=== PATIENT | male | born 1935 | race Caucasian/White ===

== ENCOUNTER → 2021-05-09 10:00 | Outpatient (BNVA) | payer SELFPAY | PROVIDERS: PCP Internal Medicine; Visit Provider Nurse Practitioner Family ==

== ENCOUNTER → 2021-08-06 09:52 | Outpatient (BNVA) | payer OTHER, SELFPAY | PROVIDERS: PCP Internal Medicine; Visit Provider Nurse Practitioner Family | DX: I10 Essential (primary) hypertension (principal); G50.0 Trigeminal neuralgia; E11.9 Type 2 diabetes mellitus without complications ==

== ENCOUNTER 2022-01-12 10:36 | Outpatient (REF) | payer OTHER, SELFPAY ==
[2022-01-12 11:04] LABS: Hemoglobin 10.8 g/dl (14.0-18.0); Mean Corpuscular HGB Conc 32.7 g/dl (31.0-36.0); Mean Corpuscular Hemoglobin 30.8 pg (27.0-33.0); Mean Platelet Volume 9.8 fL (9.4-12.4); Platelet Count 193 X10*3/uL (160-400); Red Blood Count 3.51 X10*6/uL (4.60-5.80); Red Cell Distribution Width 13.2 % (11.0-16.0); White Blood Count 5.2 X10*3/uL (4.8-10.8)
[2022-01-12 11:30] LABS: Anion Gap 14 (12-20); Blood Urea Nitrogen 16 mg/dL (9-16); Calcium 9.4 mg/dL (8.4-10.2); Carbon Dioxide 26 mmol/L (22-29); Chloride 102 mmol/L (96-108); Estimated Glomerular Filt Rate 59; Glucose Random 136 mg/dL (60-115); Potassium 5.1 mmol/L (3.3-5.1); Sodium 137 mmol/L (135-145)
== END 2022-01-12 10:37 | disposition home or self-care (01) ==
LOC: HO.LAB 10:36
PROVIDERS: PCP Internal Medicine; Visit Provider Nurse Practitioner Family
DX: I10 Essential (primary) hypertension (principal); G50.0 Trigeminal neuralgia; E11.9 Type 2 diabetes mellitus without complications
CPT/HCPCS: 36415; 80048; 85027

== ENCOUNTER → 2022-06-03 09:48 | Outpatient (BNVA) | payer OTHER, SELFPAY | PROVIDERS: PCP Internal Medicine; Visit Provider Nurse Practitioner Family | DX: D64.9 Anemia, unspecified (principal); E87.1 Hypo-osmolality and hyponatremia ==

== ENCOUNTER → 2022-10-03 09:26 | Outpatient (BNVA) | payer OTHER, SELFPAY | PROVIDERS: PCP Internal Medicine; Visit Provider Nurse Practitioner Family | DX: D64.9 Anemia, unspecified (principal); E87.1 Hypo-osmolality and hyponatremia ==

== ENCOUNTER 2022-10-03 09:27 | Outpatient (AMB) | payer OTHER, SELFPAY ==
[2022-10-03 09:28] VITALS: BP 138/60; PULSE 67; O2SAT 97; BMI 27.5
--- NOTE | 2022-10-03 09:28 | MHC.OFFVIS ---
Intake Vital Signs 10/03/22 09:28 Height 5 ft 7 in Weight 175 lb 6 oz BMI 27.5 BP 138/60 Blood Pressure Location Rt brachial Position Sitting Pulse 67 Pulse Source Pulse Oximeter Pulse Oximetry (%) 97 Oxygen Delivery Method Room Air Intake Visit Reasons: 4m follow up neuralgia Intake Note: Pt presents for a 4 month f/u for neuralgia. Pt states now it is normal. I don't have any concerns but I will answer her. Casino Floor Supervisor Required: Yes Casino Floor Supervisor Name: Jose Eduardo [id number] Allergies amiodarone Allergy (Mild, Verified 10/03/22 09:36) unknown mold Allergy (Mild, Verified 10/03/22 09:36) grasses grasses Allergy (Mild, Uncoded 10/03/22 09:36) Unknown Medication List - Last Reconciled 10/03/22 by MESSI Fierro acetaminophen 650 mg PO Q6H PRN albuterol sulfate 90 mcg/actuation 2 inhalations inhalation Q6H PRN alfuzosin ER 10 mg PO DAILY apixaban (Eliquis) 2.5 mg PO BID atorvastatin 40 mg PO DAILY bimatoprost 0.01% (Lumigan) 1 drp ophthalmic (eye) DAILY cyclosporine 0.05% (Restasis MultiDose) 1 drp ophthalmic (eye) Q12H dorzolamide 2% 1 drp ophthalmic (eye) TID dorzolamide-timolol 22.3-6.8 mg/mL 1 drp ophthalmic (eye) BID dronedarone (Multaq) 400 mg PO BID esomeprazole magnesium (Nexium) 20 mg PO DAILY finasteride 40 mg PO DAILY gabapentin 400 mg PO TID ipratropium bromide 17 mcg/actuation 2 puffs inhalation QID loratadine 10 mg PO DAILY metformin 500 mg orally; 2am, 1 tab pm montelukast 10 mg PO DAILY multivitamin 1 tab PO DAILY nifedipine ER 90 mg PO DAILY nitroglycerin 0.4 mg sublingual Q5M PRN oxcarbazepine 300mg TID orally; 30 days sennosides (Natural Senna Laxative) 8.6 mg PO DAILY sodium chloride 500 mg (1/2 x 1,000 mg) PO DAILY 30 days tezepelumab-ekko (Tezspire) mg subcut vit C,G-Ql-cpwgj-lutein-zeaxan 250-90-40-1 mg (PreserVision AREDS-2) 1 tab PO BID HPI HPI Comments History of Present Illness Details 86-yr-old male presents for f/u visit. Pt denies any significant interval medical changes. Pt states his right TN symptoms are well-controlled on the Trileptal tid. Pt denies any lightheadedness, dizziness. He is concerned about itching on his left forehead- he attributes to an allergic reaction. 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 In the meantime, he treats this w/ alcohol swabs. 09/26/22 labs: RBC ?3.34 Hgb ?10.0 Hct ?31.1 Sodium ?128 Potassium 4.9 Chloride ?93 Bicarbonate LevelC 26 Anion Gap 9 Glucose Level ?102 Glucose, POC ?134 Hemoglobin A1C (Mo nitoring) ?*7.0 BUN 14 Creatinine-Blood 1.2 Estimated GFR Crea tinine *58 Calcium 9.6 PFSH Medical History Diabetes Surgical History H/O eye surgery H/O heart surgery History of prostate surgery Previous back surgery Family History Mother Heart attack Brother Heart attack Social History Alcohol intake: never Patient Tobacco Use Status: Never used Tobacco Review of Systems Const All systems reviewed & are unremarkable except as noted in HPI and below Physical Exam Vital Signs: Last Vital Signs Pulse 67 10/03/22 09:28 BP 138/60 10/03/22 09:28 Pulse Ox 97 10/03/22 09:28 Oxygen Delivery Method Room Air 10/03/22 09:28 BMI result Body Mass Index 27.5 Const General: cooperative and no acute distress Orientation/consciousness: patient oriented x3 HEENT Head: Yes normocephalic Resp Effort & Inspection: normal respiratory effort and able to speak in complete sentences Neuro General: patient oriented x3, gait normal and CN's II-XI intact bilaterally Cognition (Neuro): normal cognition Motor exam (neuro): 5/5 motor strength present throughout Psych Appearance: grossly normal Mental Status: mental status grossly normal Speech and movement: Normal speech and movement present Affect: normal affect Attitude: cooperative Thought process: Normal thought process present Thought content: Normal thought content present Insight: Good insight present (Psych) Judgement: Good judgement present (Psych) Assessment & Plan Assessment & Plan (1) Trigeminal neuralgia: Code(s): G50.0 - Trigeminal neuralgia (2) Hyponatremia: Code(s): E87.1 - Hypo-osmolality and hyponatremia Plan Reviewed labs- mild anemia improved, sodium level now low at 138. Continue Trileptal 300mg tid. Continue Gabapentin 400mg tid- this may be helping facial pain as well Resume Na Cl 500mg po qd. Reviewed common s/s of hyponatremia, such as lightheadedness, low BP, fatigue, etc. Pt advised to notify us if these occur. Recheck BMP in 2-3 weeks- lab slip given to pt. Advised pt to hold using alcohol swabs to foorehead- suggested he try a sensitive skin face cream. f/u in 3-4 months or sooner prn. Orders: Orders Basic Metabolic Panel Today E87.1 - Hypo-osmolality and hyponatremia, G50.0 - Trigeminal neuralgia Medications: New sodium chloride 500 mg (1/2 x 1,000 mg) PO DAILY 30 days 15 tabs 3RF Coding Level of Care Code Est Pt Level 4 (77708) Diagnoses Trigeminal neuralgia G50.0 Hyponatremia E87.1
== END 2022-10-03 10:17 | disposition home or self-care (01) ==
PROVIDERS: PCP Internal Medicine; Visit Provider Nurse Practitioner Family
DX: G50.0 Trigeminal neuralgia (principal); E87.1 Hypo-osmolality and hyponatremia
CPT/HCPCS: 99214

== ENCOUNTER 2023-01-22 09:54 | Outpatient (AMB) | payer OTHER, SELFPAY ==
--- NOTE | 2023-01-22 10:05 | MHC.OFFVIS ---
Intake Vital Signs 01/22/23 10:08 Height 5 ft 7 in Weight 179 lb BMI 28.0 BP 122/74 Blood Pressure Location Rt brachial Position Sitting Pulse 68 Pulse Source Pulse Oximeter Pulse Oximetry (%) 97 Oxygen Delivery Method Room Air Intake Visit Reasons: 4m follow up neuralgia-Confirmed Intake Note: Patient presents for 4 month follow up. Patient states no issues, everything is good. Allergies amiodarone Allergy (Mild, Verified 01/22/23 10:09) unknown mold Allergy (Mild, Verified 01/22/23 10:09) grasses grasses Allergy (Mild, Uncoded 01/22/23 10:09) Unknown Medication List - Last Reconciled 01/22/23 by MESSI Fierro acetaminophen 650 mg PO Q6H PRN albuterol sulfate 90 mcg/actuation 2 inhalations inhalation Q6H PRN alfuzosin ER 10 mg PO DAILY apixaban (Eliquis) 2.5 mg PO BID atorvastatin 40 mg PO DAILY bimatoprost 0.01% (Lumigan) 1 drp ophthalmic (eye) DAILY cyclosporine 0.05% (Restasis MultiDose) 1 drp ophthalmic (eye) Q12H dorzolamide 2% 1 drp ophthalmic (eye) TID dorzolamide-timolol 22.3-6.8 mg/mL 1 drp ophthalmic (eye) BID dronedarone (Multaq) 400 mg PO BID esomeprazole magnesium (Nexium) 20 mg PO DAILY finasteride 40 mg PO DAILY gabapentin 400 mg PO TID ipratropium bromide 17 mcg/actuation 2 puffs inhalation QID loratadine 10 mg PO DAILY metformin 500 mg orally; 2am, 1 tab pm montelukast 10 mg PO DAILY multivitamin 1 tab PO DAILY nifedipine ER 90 mg PO DAILY nitroglycerin 0.4 mg sublingual Q5M PRN oxcarbazepine 300mg TID orally; 30 days sennosides (Natural Senna Laxative) 8.6 mg PO DAILY sodium chloride 500 mg (1/2 x 1,000 mg) PO DAILY 30 days tezepelumab-ekko (Tezspire) mg subcut vit C,W-Wb-tpnsz-lutein-zeaxan 250-90-40-1 mg (PreserVision AREDS-2) 1 tab PO BID HPI HPI Comments History of Present Illness Details 87-yr-old male presents for f/u visit, accompanied by his dtr. Pt denies any significant interval medical changes. Pt today is concerned about left inner cheek pain that started 1 day ago. He states there is a lump there. Denies any tooth or gum pain/swelling. He denies biting his cheek or other injury. Otherwise his trigeminal nerve symptoms are stable. His BMP showed Na+ 136 NL, Creat 1.3 H, BUN 16 NL, Glucose 171 H Pt does not like to take H2O, prefers coffee. Encouraged pt to increase fluids/water or foods w/ high fluid intake- ie soups, fruits/veggies. [facility] Medical History Diabetes Surgical History H/O heart surgery H/O eye surgery History of prostate surgery Previous back surgery Family History Mother Heart attack Brother Heart attack Social History Alcohol intake: never Patient Tobacco Use Status: Never used Tobacco Review of Systems Const All systems reviewed & are unremarkable except as noted in HPI and below Physical Exam Vital Signs: Last Vital Signs Pulse 68 01/22/23 10:08 BP 122/74 01/22/23 10:08 Pulse Ox 97 01/22/23 10:08 Oxygen Delivery Method Room Air 01/22/23 10:08 BMI result Body Mass Index 28.0 Const General: cooperative and no acute distress Orientation/consciousness: patient oriented x3 HEENT Other: left upper inner cheek- approx 1cm lesion w/ moist yellow base- mild peripheral erythema. Left cheek diffuse swelling. Head: Yes normocephalic Resp Effort & Inspection: normal respiratory effort and able to speak in complete sentences Neuro General: patient oriented x3, gait normal and CN's II-XI intact bilaterally Cognition (Neuro): normal cognition Motor exam (neuro): 5/5 motor strength present throughout Psych Appearance: grossly normal Mental Status: mental status grossly normal Speech and movement: Normal speech and movement present Affect: normal affect Attitude: cooperative Assessment & Plan Assessment & Plan (1) Trigeminal neuralgia: Code(s): G50.0 - Trigeminal neuralgia (2) Pain of cheek: Code(s): R51.9 - Headache, unspecified Plan Reviewed labs- hyponatremia resolved. Continue Trileptal 300mg tid. Continue Gabapentin 400mg tid Continue Na Cl 500mg po qd. Recheck CBC and CMP 1 week before next f/u appt. Pt advsied to f/u w/ [facility] regarding left inner cheek lesion- he wants to wait a day or two- in the meantime, he can try salt water rinses, topical honey (pt/dtr states this is a home remedy for them). f/u in 6 months or sooner prn. Orders: Orders Complete Blood Count Auto Diff 6 Months D64.9 - Anemia, unspecified, E87.1 - Hypo-osmolality and hyponatremia, G50.0 - Trigeminal neuralgia, I10 - Essential (primary) hypertension Comprehensive Met. Panel 6 Months D64.9 - Anemia, unspecified, E87.1 - Hypo-osmolality and hyponatremia, G50.0 - Trigeminal neuralgia, I10 - Essential (primary) hypertension Coding Level of Care Code Est Pt Level 4 (75085) Diagnoses Trigeminal neuralgia G50.0 Pain of cheek R51.9
[2023-01-22 10:08] VITALS: BP 122/74; PULSE 68; O2SAT 97; BMI 28.0
== END 2023-01-22 10:37 | disposition home or self-care (01) ==
PROVIDERS: PCP Internal Medicine; Visit Provider Nurse Practitioner Family
DX: G50.0 Trigeminal neuralgia (principal); R51.9 Headache, unspecified
CPT/HCPCS: 99214

== ENCOUNTER → 2023-01-22 09:54 | Outpatient (BNVA) | payer OTHER, SELFPAY | PROVIDERS: PCP Internal Medicine; Visit Provider Nurse Practitioner Family | DX: D64.9 Anemia, unspecified (principal); E87.1 Hypo-osmolality and hyponatremia; G50.0 Trigeminal neuralgia ==

== ENCOUNTER 2023-07-23 09:34 | Outpatient (AMB) | payer OTHER, SELFPAY ==
--- NOTE | 2023-07-23 09:41 | MHC.OFFVIS ---
Vital Signs 07/23/23 09:42 Height 5 ft 7 in Weight 173 lb BMI 27.1 BP 120/64 Blood Pressure Location Rt brachial Position Sitting Intake Visit Reasons: 6m follow up neuralgia-Conf Intake Note: Patient presents for 6 month follow up neuralgia. no issues or concerns today Allergies amiodarone Allergy (Mild, Verified 07/23/23 09:46) unknown mold Allergy (Mild, Verified 07/23/23 09:46) grasses grasses Allergy (Mild, Uncoded 07/23/23 09:46) Unknown HPI Comments Details: 87-yr-old male presents for f/u visit. Pt denies any significant interval medical changes. Pt denies facial pain, cheek pain. He notices puffiness under bilateral eyes- not bothersome - just notices it. He does sleep well w/ his CPAP machine- uses a full face mask. He states the left cheek swelling seen at last visit has self-resolved. Since the last visit, [facility] had reached out, as pt was c/o GI upset from the sodium tabs. We switched the sodium tabs to Thermo Tabs, which pt is tolerating better. His last serum Na+ level was 137 NL (03/18/23 at [facility]), and WBC 6.1, H&H 12.1 % 36.6 (05/22/23 at [facility]). Pt states he had labs done last week for [facility]. [facility] Medical History Diabetes Surgical History H/O heart surgery H/O eye surgery History of prostate surgery Previous back surgery Family History Mother Heart attack Brother Heart attack Social History Alcohol intake: never Patient Tobacco Use Status: Never used Tobacco Physical Exam Vital Signs: Last Vital Signs BP 120/64 07/23/23 09:42 BMI result Body Mass Index 27.1 Const General: cooperative and no acute distress Orientation/consciousness: patient oriented x3 Resp Effort & Inspection: normal respiratory effort and able to speak in complete sentences Neuro General: patient oriented x3 Cranial nerves: Yes CN's II-XII intact bilaterally Cognition (Neuro): normal cognition Psych Appearance: grossly normal Mental Status: mental status grossly normal Speech and movement: Normal speech and movement present Affect: normal affect Attitude: cooperative Assessment & Plan Assessment & Plan (1) Trigeminal neuralgia: Code(s): G50.0 - Trigeminal neuralgia Category: Medical (2) Hyponatremia: Code(s): E87.1 - Hypo-osmolality and hyponatremia Category: Medical (3) Anemia: Code(s): D64.9 - Anemia, unspecified Category: Medical Plan Reviewed interval labs- Sodium and WBC- NL. Continues to ahve mild anemia. Continue Trileptal 300mg tid. Continue Gabapentin 400mg tid Continue Na Cl 500mg po qd. Will request recent labs from PCP. f/u in 6 months or sooner prn. Coding Level of Care Code Est Pt Level 4 (53958) Diagnoses Trigeminal neuralgia G50.0 Hyponatremia E87.1 Anemia D64.9
[2023-07-23 09:42] VITALS: BP 120/64; BMI 27.1
== END 2023-07-23 10:11 | disposition home or self-care (01) ==
PROVIDERS: PCP Internal Medicine; Visit Provider Nurse Practitioner Family
DX: G50.0 Trigeminal neuralgia (principal); E87.1 Hypo-osmolality and hyponatremia; D64.9 Anemia, unspecified
CPT/HCPCS: 99214

== ENCOUNTER → 2023-07-23 09:34 | Outpatient (BNVA) | payer OTHER, SELFPAY | PROVIDERS: PCP Internal Medicine; Visit Provider Nurse Practitioner Family | DX: D64.9 Anemia, unspecified (principal); E87.1 Hypo-osmolality and hyponatremia; G50.0 Trigeminal neuralgia; I10 Essential (primary) hypertension ==

== ENCOUNTER 2024-02-06 10:47 | Outpatient (AMB) | payer OTHER, SELFPAY ==
[2024-02-06 10:48] VITALS: BP 134/72; BMI 29.0
--- NOTE | 2024-02-06 10:48 | MHC.OFFVIS ---
Vital Signs 02/06/24 10:48 Height 5 ft 7 in Weight 185 lb BMI 29.0 BP 134/72 Blood Pressure Location Rt brachial Position Sitting Intake Visit Reasons: 6 mo f/u Intake Note: Patient presents for 6 month follow up Allergies amiodarone Allergy (Mild, Verified 02/06/24 10:50) unknown mold Allergy (Mild, Verified 02/06/24 10:50) grasses grasses Allergy (Mild, Uncoded 02/06/24 10:50) Unknown HPI Comments Details: 88-yr-old male presents for f/u visit for TN. Accompanied by his family who translates for pt per pt request. 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 He has had medications changes, including addition of Clopidegrol 75mg qd x's 6 months and hydralazine 10mg po tid. Last available serum Na+ level was 132L. He is not taking any sodium supplements at this time. Pt states he is feeling better now, rarely has mild exertional chest pain. No longer having post-op stabbing chest pains. Pt denies facial pain, cheek pain. He is compliant w/ Oxcarbazepine. He does sleep well w/ his CPAP machine- uses a full face mask. [facility] Medical History Diabetes Surgical History H/O heart surgery H/O eye surgery History of prostate surgery Previous back surgery Family History Mother Heart attack Brother Heart attack Social History Alcohol intake: never Patient Tobacco Use Status: Never used Tobacco Physical Exam Vital Signs: Last Vital Signs BP 134/72 02/06/24 10:48 BMI result Body Mass Index 29.0 Const General: cooperative and no acute distress Orientation/consciousness: patient oriented x3 Resp Effort & Inspection: normal respiratory effort and able to speak in complete sentences Neuro General: patient oriented x3 Cranial nerves: Yes CN's II-XII intact bilaterally Cognition (Neuro): normal cognition Psych Appearance: grossly normal Mental Status: mental status grossly normal Speech and movement: Normal speech and movement present Affect: normal affect Attitude: cooperative Assessment & Plan Assessment & Plan (1) Trigeminal neuralgia: Code(s): G50.0 - Trigeminal neuralgia Category: Medical (2) HTN (hypertension): Code(s): I10 - Essential (primary) hypertension Category: Medical (3) Hyponatremia: Code(s): E87.1 - Hypo-osmolality and hyponatremia Category: Medical Plan Reviewed interval labs- Sodium levels 130-132 L. Recheck CBC/CMP in 1-2 weeks and 1 week prior to f/u appt. Lab slips given to pt. Continue Trileptal 300mg tid. Continue Gabapentin 400mg tid Pt has stopped all sodium tab supplements. As pt continues on Oxcarbazepine and did not tolertae stopping it, advised to add salt to meals to reduce risk for hyponatremia. Reviewed complications of hyponatremia such as dizziness, AMS, seizure, coma, if untreated. Will request recent labs from PCP. f/u in 6 months or sooner prn. Orders: Orders Complete Blood Count Auto Diff Today G50.0 - Trigeminal neuralgia, I10 - Essential (primary) hypertension Comprehensive Met. Panel Today G50.0 - Trigeminal neuralgia, I10 - Essential (primary) hypertension Coding Level of Care Code Est Pt Level 4 (65915) Diagnoses Trigeminal neuralgia G50.0 HTN (hypertension) I10 Hyponatremia E87.1
== END 2024-02-06 11:20 | disposition home or self-care (01) ==
PROVIDERS: PCP Internal Medicine; Visit Provider Nurse Practitioner Family
DX: G50.0 Trigeminal neuralgia (principal); I10 Essential (primary) hypertension; E87.1 Hypo-osmolality and hyponatremia
CPT/HCPCS: 99214

== ENCOUNTER 2024-08-11 09:52 | Outpatient (AMB) | payer OTHER, SELFPAY ==
--- NOTE | 2024-08-11 10:23 | MHC.OFFVIS ---
Vital Signs 08/11/24 10:30 Height 5 ft 7 in BP 150/62 H Pulse 58 Pulse Oximetry (%) 97 Oxygen Delivery Method Room Air Intake Visit Reasons: Follow up 6mo Intake Note: Patient presents 6 month follow up for trigeminal neuralgia. Kindergarten Classroom Teacher Required: Yes Kindergarten Classroom Teacher Services: Kindergarten Classroom Teacher Present Kindergarten Classroom Teacher Name: [id number] Allergies amiodarone Allergy (Mild, Verified 08/11/24 10:28) unknown mold Allergy (Mild, Verified 08/11/24 10:28) grasses grasses Allergy (Mild, Uncoded 02/06/24 10:50) Unknown Medication List - Last Reconciled 08/15/24 by La Nena Leos, MESSI acetaminophen 650 mg PO Q6H PRN albuterol sulfate 90 mcg/actuation 2 inhalations inhalation Q6H PRN alfuzosin ER 10 mg PO DAILY amlodipine 10 mg PO DAILY apixaban (Eliquis) 2.5 mg PO BID atorvastatin 40 mg PO DAILY bimatoprost 0.01% (Lumigan) 1 drp ophthalmic (eye) DAILY clopidogrel 75 mg PO DAILY cyclosporine 0.05% (Restasis MultiDose) 1 drp ophthalmic (eye) Q12H dorzolamide 2% 1 drp ophthalmic (eye) TID dorzolamide-timolol 22.3-6.8 mg/mL 1 drp ophthalmic (eye) BID dronedarone (Multaq) 400 mg PO BID esomeprazole magnesium (Nexium) 20 mg PO DAILY finasteride 40 mg PO DAILY gabapentin 400 mg PO TID hydralazine 10 mg PO TID ipratropium bromide 17 mcg/actuation 2 puffs inhalation QID loratadine 10 mg PO DAILY montelukast 10 mg PO DAILY multivitamin 1 tab PO DAILY nitroglycerin 0.4 mg sublingual Q5M PRN oxcarbazepine 300mg TID orally; 30 days sennosides (Natural Senna Laxative) 8.6 mg PO DAILY sitagliptin phosphate (Januvia) 25 mg PO DAILY sod.chlorid-potassium chloride 287-180-15 mg (Thermotabs) 1 tab PO BID 30 days vit C,O-Un-kzpxg-lutein-zeaxan 250-90-40-1 mg (PreserVision AREDS-2) 1 tab PO BID HPI Comments Details: 88-yr-old male presents for f/u visit for [place]. Accompanied by his driver license agent, who assists with Martiniquais translation pt per pt request. Patient reports he is overall feeling better, has only episodic episodes of chest discomfort or shortness of breath on exertion. He has follow-up with Cardiology later today. Pt denies facial pain, cheek pain. He is compliant w/ Oxcarbazepine. He is not taking the salt tabs, as he has increased his dietary salt intake. 08/02/2024 labs: CBC showed normal WBC 6.4, and low RBC 3.66, low hemoglobin 12.2, low hematocrit 35.8, elevated MCV 98, normal platelets 156, elevated iron 186, elevated iron saturation 57, iron binding capacity normal at 326, Hemoglobin A1c 7.2 Vitamin-D 28.8 low Vitamin B12 1964 elevated CMP within normal limit with BUN 22, creatinine 1.23, sodium 136, potassium 4.2- in the only exceptions being elevated glucose at 192, and estimated GFR 57. Pt states after review of recent labs- PCP started him on vit D and adjusted his ferrous sulfate (he does not take this w/ vit C- states OJ has too much sugar). He does sleep well w/ his CPAP machine- uses a full face mask. Sometimes his machine shows a red face in the morning- he has not seen [facility] sleep medicine- he uses [facility] in [place]. [facility] Medical History Diabetes Surgical History H/O heart surgery H/O eye surgery History of prostate surgery Previous back surgery Family History Mother Heart attack Brother Heart attack Social History Alcohol intake: never Patient Tobacco Use Status: Never used Tobacco Physical Exam Vital Signs: Last Vital Signs Pulse 58 08/11/24 10:30 BP 150/62 H 08/11/24 10:30 Pulse Ox 97 08/11/24 10:30 Oxygen Delivery Method Room Air 08/11/24 10:30 Const General: cooperative and no acute distress Orientation/consciousness: patient oriented x3 Resp Effort & Inspection: normal respiratory effort and able to speak in complete sentences Neuro General: patient oriented x3 Cranial nerves: Yes CN's II-XII intact bilaterally Cognition (Neuro): normal cognition Psych Appearance: grossly normal Mental Status: mental status grossly normal Speech and movement: Normal speech and movement present Affect: normal affect Attitude: cooperative Assessment & Plan Assessment & Plan (1) Hyponatremia: Code(s): E87.1 - Hypo-osmolality and hyponatremia Category: Medical (2) Trigeminal neuralgia: Code(s): G50.0 - Trigeminal neuralgia Category: Medical (3) HTN (hypertension): Code(s): I10 - Essential (primary) hypertension Category: Medical Plan Reviewed interval labs- sodium level within normal limits, WBC within normal limits. Recheck CBC/CMP 1 week prior to f/u appt. Continue Trileptal 300mg tid. Continue Gabapentin 400mg tid Continue to add salt to meals to reduce risk for hyponatremia, as patient does not tolerate oral sodium tab supplements. Reviewed complications of hyponatremia such as dizziness, AMS, seizure, coma, if untreated. Pt to follow-up in 6 months or sooner prn. Orders: Orders Comprehensive Met. Panel 6 Months D64.9 - Anemia, unspecified, E87.1 - Hypo-osmolality and hyponatremia, G50.0 - Trigeminal neuralgia Complete Blood Count Auto Diff 6 Months D64.9 - Anemia, unspecified, E87.1 - Hypo-osmolality and hyponatremia, G50.0 - Trigeminal neuralgia Coding Level of Care Code Est Pt Level 4 (44743) Diagnoses Hyponatremia E87.1 Trigeminal neuralgia G50.0 HTN (hypertension) I10
[2024-08-11 10:30] VITALS: BP 150/62; PULSE 58; O2SAT 97
--- OUTSIDE RECORDS SUMMARY | 2024-08-11 10:40 | XMS_ITS ---
Author Organization [facility] Address [address] [place] [address] Care Team Providers Care Residential Support Specialist Name Role Phone Margo DUGAN, Stanislav Primary Care Provider U patleslyConstantino Nunez Unavailable [phone] Encounters Encounter Location Date Provider Diagnosis [facility] [address] [place] [phone] 05/05/2024 Constantino Marroquin Plan Of Treatment Next Appt Details Provider Name:Constantino Marroquin , 11/04/2024 10:00:00 AM, [address] [facility], [place] [address], [place], [address], Progress Notes * Jack HOFFMANDOB:1935 (88 yo M)Acc No.[id number]:05/05/2024 Progress Note Patient:?Jack HOFFMAN Provider:?Constantino Marroquin DPM :1935???Age:88 Y???Sex:Male Carlyle e:05/05/2024 Address:[address] [place], [place] [id number] Pcp:Stanislav Aragon MD Subjective: * Chief Complaints: * ??? * Medical History:? Objective: * Vitals:? Assessment: Plan: * Treatment: * Images: * The named appointment provid er may or may not be the originator of this progress note, and it is not deemed complete until electronically signed by the appointment provider. Sign off status: Pending * Provider:?Constantino Marroquin DPM Date:?2024 Generated for Neal nguyễn/Yael/Kassi on:?08/11/2024 10:40 AM EDT
== END 2024-08-11 11:00 | disposition home or self-care (01) ==
LOC: HO.HSMS 09:52
PROVIDERS: PCP Internal Medicine; Visit Provider Nurse Practitioner Family
DX: E87.1 Hypo-osmolality and hyponatremia (principal); G50.0 Trigeminal neuralgia; I10 Essential (primary) hypertension
CPT/HCPCS: 99214

== ENCOUNTER 2025-02-22 09:53 | Outpatient (AMB) | payer OTHER, SELFPAY ==
[2025-02-22 10:18] VITALS: BP 120/60; PULSE 51; O2SAT 94; BMI 29.3
--- NOTE | 2025-02-22 10:18 | MHC.OFFVIS ---
Vital Signs 02/22/25 10:18 Height 5 ft 7 in Weight 187 lb BMI 29.3 BP 120/60 Blood Pressure Location Rt brachial Position Sitting Pulse 51 Pulse Source Pulse Oximeter Pulse Oximetry (%) 94 Oxygen Delivery Method Room Air Intake Visit Reasons: Follow up 6mo Intake Note: Patient presents 6 month follow up for trigeminal neuralgia. Hearing Aid Consultant Required: No Hearing Aid Consultant Services: Hearing Aid Consultant Present Hearing Aid Consultant Name: [place] Accompanied by: Daughter Allergies amiodarone Allergy (Mild, Verified 08/11/24 10:28) unknown mold Allergy (Mild, Verified 08/11/24 10:28) grasses grasses Allergy (Mild, Uncoded 02/06/24 10:50) Unknown Medication List - Last Reconciled 02/22/25 by MESSI Fierro acetaminophen 650 mg PO Q6H PRN albuterol sulfate 90 mcg/actuation 2 inhalations inhalation Q6H PRN alfuzosin ER 10 mg PO DAILY amlodipine 10 mg PO DAILY apixaban (Eliquis) 2.5 mg PO BID atorvastatin 40 mg PO DAILY bimatoprost 0.01% (Lumigan) 1 drp ophthalmic (eye) DAILY clopidogrel 75 mg PO DAILY cyclosporine 0.05% (Restasis MultiDose) 1 drp ophthalmic (eye) Q12H dorzolamide 2% 1 drp ophthalmic (eye) TID dorzolamide-timolol 22.3-6.8 mg/mL 1 drp ophthalmic (eye) BID dronedarone (Multaq) 400 mg PO BID esomeprazole magnesium (Nexium) 20 mg PO DAILY finasteride 40 mg PO DAILY gabapentin 400 mg PO TID hydralazine 10 mg PO TID ipratropium bromide 17 mcg/actuation 2 puffs inhalation QID loratadine 10 mg PO DAILY montelukast 10 mg PO DAILY multivitamin 1 tab PO DAILY nitroglycerin 0.4 mg sublingual Q5M PRN oxcarbazepine 300mg TID orally; 30 days sennosides (Natural Senna Laxative) 8.6 mg PO DAILY sitagliptin phosphate (Januvia) 25 mg PO DAILY sod.chlorid-potassium chloride 287-180-15 mg (Thermotabs) 1 tab PO BID 30 days vit C,L-Cg-jqgiv-lutein-zeaxan 250-90-40-1 mg (PreserVision AREDS-2) 1 tab PO BID HPI Comments Details: 89-yr-old male presents for f/u visit for [place]. 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 Patient reports he is overall doing well. Pt denies facial pain, cheek pain. He is compliant w/ Oxcarbazepine. Using added table salt, but was not able to tolerate the salt tabs. His last serum Na level was WNL- so they did not do the f/u labs which were ordered at the last visit. He states he is compliant with his CPAP- he cannot sleep without it. Review of his compliance report shows consistent use w/ residual AHI 5/hr. Today he notes R > L UE tremor, which is at rest and with action, and is worse if nervous. The tremor interferes with his ability to hold a cup and eat. His arms can feel weak when his hands are more shaky. Tremor started about 2-3 years ago. Denies hyposmia Denies rigidity. Denies orthostatic lightheadedness. Endorses occasional constipation. Occasional morning neck pain, which he attributes to chronic back pain. He used to work in [employer], [employer] in [place]. Denies h/o neuroleptic tx or psychiatric hospitalization. Denies family h/o tremor. [employer] in [place]. [employer] Compliance Report: 03/25/2024 - 02/21/2025 Overall Usage days: 30/30 days (100%) Usage days >= 4 hours: 30 days (100%) Average usage (days used): 7 hours 18 minutes Median usage (days used) 7 hours 28 minutes Total used hours (value since last reset - 02/21/2025) 15,946 hours [employer] 10 AutoSet Serial number [id number] Mode APAP 4-10 cmH2O w/ EPR Fulltime EPR level 1 Response Soft Therapy Median Pressure: 8.4 cmH2O Maximum Pressure - 9.9 cmH2O Leaks Median: 11.3 L/min Maximum: 62.5 L/min Residual events AHI: 5.1 per hour [facility] Medical History Diabetes Surgical History H/O heart surgery H/O eye surgery History of prostate surgery Previous back surgery Family History Mother Heart attack Brother Heart attack Social History Alcohol intake: never Patient Tobacco Use Status: Never used Tobacco Physical Exam Vital Signs: Last Vital Signs Pulse 51 02/22/25 10:18 BP 120/60 02/22/25 10:18 Pulse Ox 94 02/22/25 10:18 Oxygen Delivery Method Room Air 02/22/25 10:18 BMI result Body Mass Index 29.3 Const General: cooperative and no acute distress Orientation/consciousness: patient oriented x3 Resp Effort & Inspection: normal respiratory effort and able to speak in complete sentences Neuro Other: RUE rest tremor RUE mild tremor in wing beat, and large amplitude postural tremor Mild BUE R > L rigidity FFM and Foot taps- decreased- mildly MS 5/5 throughout Slow steady gait. General: patient oriented x3 Cranial nerves: Yes CN's II-XII intact bilaterally Cognition (Neuro): normal cognition Psych Appearance: grossly normal Mental Status: mental status grossly normal Speech and movement: Normal speech and movement present Affect: normal affect Attitude: cooperative Assessment & Plan Assessment & Plan (1) Trigeminal neuralgia: Code(s): G50.0 - Trigeminal neuralgia Category: Medical (2) Hyponatremia: Code(s): E87.1 - Hypo-osmolality and hyponatremia Category: Medical (3) Cervicalgia: Code(s): M54.2 - Cervicalgia Category: Medical (4) Tremor: Comment: BUE, L > R, action, rest, and postural Code(s): R25.1 - Tremor, unspecified Category: Medical Plan Check CBC/CMP 1 week prior to f/u appt. Continue Trileptal 300mg tid. Continue Gabapentin 400mg tid Continue to add salt to meals to reduce risk for hyponatremia, as patient does not tolerate oral sodium tab supplements. Symptoms of hyponatremia include dizziness, AMS, seizure, coma, if untreated. Continue APAP 4-10 cmH2O w/ EPR 1 nightly > 4 hrs For tremor, which is interfering w/ pt's ADLs: Discussed possible tremor work-up and treatment options, and at this time, would like to start with conservative treatment options, such as therapy. Therefore, he is advised to undergo: PT eval and treat- for tremor and cervicalgia OT eval and treat- for tremor and ADLs Future considerations: head/c-spine imagine, and/or BUE EMG/NCS Pt to follow-up in 6 months or sooner prn. Orders: Orders PT Evaluation and Treatment Today M54.2 - Cervicalgia, R25.1 - Tremor, unspecified OT Evaluation and Treatment Today R25.1 - Tremor, unspecified Coding Level of Care Code Est Pt Level 4 (41636) Diagnoses Trigeminal neuralgia G50.0 Hyponatremia E87.1 Cervicalgia M54.2 Tremor R25.1
== END 2025-02-22 10:57 | disposition home or self-care (01) ==
LOC: HO.HSMS 09:53
PROVIDERS: PCP Internal Medicine; Visit Provider Nurse Practitioner Family
DX: G50.0 Trigeminal neuralgia (principal); E87.1 Hypo-osmolality and hyponatremia; M54.2 Cervicalgia; R25.1 Tremor, unspecified
CPT/HCPCS: 99214